=== PATIENT | female | born 2005 | race Caucasian/White ===

== ENCOUNTER 2025-01-22 02:13 | Emergency (ER) | payer OTHER ==
[~2025-01-22] VITALS: Ht 160 cm; Wt 105.0 kg
[2025-01-22 02:18] VITALS: O2SAT 95
[2025-01-22 02:33] VITALS: BP 130/79; PULSE 76; RESP 16; TEMP 36.8; O2SAT 98
[2025-01-22] MEDS ORDERED: ACET-2708 MT (03:19)
[2025-01-22 03:24] VITALS: TEMP 97.9
[2025-01-22] MEDS: ACETAMINOPHEN 325MG TABLET PO ONE (03:24)
== END 2025-01-22 03:46 | disposition home or self-care (01) ==
LOC: ER 02:52
DX: M54.50 Low back pain, unspecified (principal); M54.2 Cervicalgia
CPT/HCPCS: 99282